=== PATIENT | male | born 1960 | race Caucasian/White ===

== ENCOUNTER 2017-01-24 09:51 | Emergency (ER) | payer OTHER | END 2017-01-24 10:44 | disposition home or self-care (01) | LOC: FER 09:51 | DX: K94.29 Other complications of gastrostomy (principal); I10 Essential (primary) hypertension; Y83.3 Surgical operation with formation of external stoma as the cause of abnormal reaction of the patient, or of later complication, without mention of misadventure at the time of the procedure | CPT/HCPCS: 99282 ==

== ENCOUNTER 2017-01-24 22:28 | Emergency (ER) | payer OTHER | END 2017-01-25 01:35 | disposition home or self-care (01) | LOC: FER 22:28 | DX: Z43.1 Encounter for attention to gastrostomy (principal); R11.0 Nausea; I10 Essential (primary) hypertension; Z87.820 Personal history of traumatic brain injury; Z98.890 Other specified postprocedural states | CPT/HCPCS: 99282 ==

== ENCOUNTER 2021-12-26 02:03 | Emergency (ER) | payer OTHER ==
[~2021-12-26 02:03] MED LIST: ASPIR 8181 MG PO; KEPPRA500 MG PO; TRANDATE100 MG PO
[2021-12-26 03:19] LABS: BASOPHIL 1.1 % (0-2); EOSINOPHIL 5.2 % (0-5); HCT 41.8 % (42.0-52.0); HGB 14.3 g/dl (13.2-18.0); MCH 31.2 pg (25.0-31.0); MCHC 34.2 g/dL (32.0-36.0); MCV 91.1 fL (78.0-100.0); MONOCYTE 10.5 % (0-12); MPV 10.3 fL (6.0-9.5); NEUTROPHIL 52.3 % (41-80); NRBC 0; PLT 188 K/uL (150-400); RBC 4.59 M/uL (4.70-6.00); RDW 13.2 % (11.5-14.0); WBC 8.4 K/uL (4.0-10.5)
[2021-12-26 03:28] LABS: CORONAVIRUS 2019 SARS-COV-2 NEGATIVE (NEGATIVE); INFLUENZA A NAA NEGATIVE (NEGATIVE)
[2021-12-26 03:41] LABS: ALBUMIN 3.4 g/dL (3.4-5.0); BILIRUBIN - TOTAL 0.1 mg/dL (0.2-1.0); CREATININE 0.94 mg/dL (0.67-1.17); FT4 (FREE T4) 0.8 ng/dL (0.76-1.46); GLOBULIN (CALCULATION) 3.4 g/dL; MAGNESIUM 1.4 mg/dL (1.8-2.4); TOTAL PROTEIN 6.8 g/dL (6.4-8.2)
[2021-12-26] MEDS ORDERED: K-TAB ER20 MEQ PO (03:55)
== END 2021-12-26 05:15 | disposition home or self-care (01) ==
LOC: FER 02:03
PROVIDERS: Internal Medicine
DX: E87.6 Hypokalemia (principal); E83.42 Hypomagnesemia; T49.0X5A Adverse effect of local antifungal, anti-infective and anti-inflammatory drugs, initial encounter; I10 Essential (primary) hypertension; Z20.822 Contact with and (suspected) exposure to COVID-19; Z88.6 Allergy status to analgesic agent; Z79.82 Long term (current) use of aspirin; Z79.899 Other long term (current) drug therapy
CPT/HCPCS: 36415; 71045; 80053; 83735; 84439; 84443; 84484; 85025; 93005; J1170; J3475; J3480; J3490; J7050; U0002

== ENCOUNTER 2022-04-10 12:01 | Emergency (ER) | payer OTHER ==
[~2022-04-10 12:01] MED LIST changes: +K-TAB ER20 MEQ PO
== END 2022-04-10 13:27 | disposition home or self-care (01) ==
LOC: FER 12:01
DX: S81.811A Laceration without foreign body, right lower leg, initial encounter (principal); I10 Essential (primary) hypertension; J44.9 Chronic obstructive pulmonary disease, unspecified; Z23 Encounter for immunization; Z79.899 Other long term (current) drug therapy; Z88.6 Allergy status to analgesic agent; W26.0XXA Contact with knife, initial encounter; Y92.009 Unspecified place in unspecified non-institutional (private) residence as the place of occurrence of the external cause
CPT/HCPCS: 73590; 90471; 90715